=== PATIENT | male | born 1995 ===

== ENCOUNTER 2022-11-30 14:04 | Outpatient (CLI) | payer OTHER | END 2022-11-30 14:05 | disposition home or self-care (01) | LOC: CSHMRI 14:04 | PROVIDERS: ATTEND Family Medicine | DX: S86.912D Strain of unspecified muscle(s) and tendon(s) at lower leg level, left leg, subsequent encounter (principal); S83.242A Other tear of medial meniscus, current injury, left knee, initial encounter; M23.301 Other meniscus derangements, unspecified lateral meniscus, left knee; S82.832A Other fracture of upper and lower end of left fibula, initial encounter for closed fracture; M25.462 Effusion, left knee ==